=== PATIENT | female | born 1935 | race Two or more races ===

== ENCOUNTER → 2020-09-04 | Emergency (ER) | payer OTHER ==
[~2020-09-04] VITALS: Ht 152.4 cm; Wt 64.9 kg
[~2020-09-04] MED LIST: AMICAR; LIPITOR20 MG; NEXIUM2.5 MG; NORVASC5 MG; TENORMIN25 MG
== END | disposition left against medical advice (07) ==
LOC: ER 16:26
DX: S02.31XA Fracture of orbital floor, right side, initial encounter for closed fracture (principal); W18.39XA Other fall on same level, initial encounter; Y93.89 Activity, other specified; Y92.098 Other place in other non-institutional residence as the place of occurrence of the external cause; Y99.8 Other external cause status